=== PATIENT | male | born 1935 | race Hispanic/Latino ===

== ENCOUNTER 2017-10-24 13:29 | Inpatient (IN) | payer OTHER, MEDICARE ==
[~2017-10-24] VITALS: Ht 160 cm; Wt 56.8 kg
[2017-10-24 13:59] LABS: BASOPHILS % (AUTO) 0.1 % (0.0-5.0); HEMATOCRIT 35.6 % (42-54); LYMPHOCYTES % (AUTO) 2.8 % (21.0-51.0); MEAN CORPUSCULAR HEMOGLOBIN 25.3 pg (27.0-33.0); MEAN CORPUSCULAR HGB CONC 32.7 g/dL (32.0-36.0); MEAN CORPUSCULAR VOLUME 77.4 fL (79-99); MONOCYTES % (AUTO) 6.3 % (3.0-13.0); NEUTROPHILS % (AUTO) 90.8 % (40.0-77.0); PLATELET COUNT (AUTO) 299 K/uL (130-400); RED CELL DISTRIBUTION WIDTH 17.9 % (11.0-15.5); WHITE BLOOD COUNT (AUTO) 16.8 K/uL (4.8-10.8)
[2017-10-24] MEDS ORDERED: SODIUM CHLORIDE 0.9% 1000ML 1,000 ML IV ONE ×2 (14:05→16:17)
[2017-10-24] MEDS ORDERED: CEFTRIAXONE SODIUM 1 GM ONE (14:05)
[2017-10-24 14:07] LABS: APPEARANCE,URINE Cloudy (CLEAR); BILIRUBIN,URINE Negative (NEGATIVE); COLOR,URINE Yellow (YELLOW); GLUCOSE, URINE (UA) Negative (NEGATIVE); KETONES,URINE Negative (NEGATIVE); LEUKOCYTE ESTERASE ,URINE Large (NEGATIVE); NITRATE,URINE Negative (NEGATIVE); OCCULT BLOOD,URINE Moderate (NEGATIVE); PROTEIN,URINE Trace (NEGATIVE)
[2017-10-24 14:14] LABS: INR 1.06 (0.85-1.15); PARTIAL THROMBOPLASTIN TIME 31.5 SEC (26.3-35.5); PROTHROMBIN TIME 11.1 SEC (9.6-11.6)
[2017-10-24 14:17] LABS: BACTERIA,URINE Few /HPF (None Seen); WBC,URINE 26-50 /HPF (0-1)
[2017-10-24 14:18] LABS: SQUAMOUS EPITHELIAL CELL,UR 0-2 /HPF (0-2)
[2017-10-24 14:25] LABS: CARBON DIOXIDE 26 mmol/L (21-32); CHLORIDE 100 mmol/L (101-111); CREATININE 1.9 mg/dL (0.5-1.5); GLOMERULAR FILTR. RATE CALC 36 mL/min (>60); GLUCOSE,RANDOM 104 mg/dL (70-105); POTASSIUM 3.9 mmol/L (3.5-5.1); SODIUM SERUM 136 mmol/L (136-145); UREA NITROGEN, BLOOD 18 mg/dL (7-18)
[2017-10-24 14:42] LABS: ALANINE AMINOTRANSFERASE 23 U/L (12-78); ALBUMIN 3.8 g/dL (3.5-5.0); ASPARTATE AMINOTRANSFERASE 24 U/L (10-37); BILIRUBIN,TOTAL 0.9 mg/dL (0.2-1.0); CREATINE KINASE MB < 0.5 ng/mL (0.5-3.6); CREATINE KINASE, TOTAL 54 U/L (21-232); MYOGLOBIN 87 ng/mL (10-92); TOTAL PROTEIN, SERUM 7.8 g/dL (6.0-8.3); TROPONIN I < 0.04 ng/mL (0.00-0.06)
[2017-10-24] MEDS ORDERED: ONDANSETRON HCL 4 MG/2 ML VIAL ONE (16:22)
[2017-10-24] MEDS ORDERED: ACETAMINOPHEN 325 MG TAB ONE (16:28)
[2017-10-24 17:24] VITALS: BP 122/55
[2017-10-24] MEDS ORDERED: ALBUTEROL SULFATE 0.083% 2.5 MG/3 ML INH IH PRN (17:30)
[2017-10-24] MEDS ORDERED: ACETAMINOPHEN 325 MG TAB PO PRN ×2 (17:30)
[2017-10-24] MEDS ORDERED: ONDANSETRON HCL 4 MG/2 ML VIAL IV PRN (17:30)
[2017-10-24] MEDS ORDERED: CLOP75TA32 PO (17:32)
[2017-10-24] MEDS ORDERED: PANT40TA25 PO (17:32)
[2017-10-24] MEDS ORDERED: CEFTRIAXONE SODIUM 1 GM IVP ONE (18:00)
[2017-10-24] MEDS: NICOTINE 14 MG/ 24 HR PATCH TD SCH (18:17)
[2017-10-24] MEDS: SODIUM CHLORIDE 0.9% 1000ML 1,000 ML IV SCH (18:18)
[2017-10-24 19:54] VITALS: BP 101/43
[2017-10-24] MEDS: TAMSULOSIN HCL 0.4 MG CAP.ER.24H PO SCH (21:23)
[2017-10-25] VITALS (7 sets, daily range): BP systolic 99–135; BP diastolic 53–70
[2017-10-25] MEDS: SODIUM CHLORIDE 0.9% 1000ML 1,000 ML IV SCH ×3 (03:53→22:56)
[2017-10-25 04:02] LABS: BASOPHILS % (AUTO) 0.4 % (0.0-5.0); EOSINOPHILS % (AUTO) 0.2 % (0.0-8.0); HEMATOCRIT 26.6 % (42-54); LYMPHOCYTES % (AUTO) 5.5 % (21.0-51.0); MEAN CORPUSCULAR HEMOGLOBIN 25.3 pg (27.0-33.0); MEAN CORPUSCULAR HGB CONC 33.1 g/dL (32.0-36.0); MEAN CORPUSCULAR VOLUME 76.6 fL (79-99); MONOCYTES % (AUTO) 6.6 % (3.0-13.0); NEUTROPHILS % (AUTO) 87.3 % (40.0-77.0); PLATELET COUNT (AUTO) 199 K/uL (130-400); RED BLOOD CELL COUNT(AUTO) 3.48 MIL/uL (4.50-6.20); WHITE BLOOD COUNT (AUTO) 12.1 K/uL (4.8-10.8)
[2017-10-25 04:07] LABS: HEMOGLOBIN A1C 5.8 % (4.0-6.0)
[2017-10-25 04:13] LABS: ALBUMIN 2.5 g/dL (3.5-5.0); BILIRUBIN,DIRECT 0.3 mg/dL (0.0-0.3); BILIRUBIN,TOTAL 0.6 mg/dL (0.2-1.0); CREATININE 1.6 mg/dL (0.5-1.5); MAGNESIUM 1.6 mg/dL (1.80-2.40); POTASSIUM 3.9 mmol/L (3.5-5.1); TOTAL PROTEIN, SERUM 5.5 g/dL (6.0-8.3)
[2017-10-25] MEDS: NICOTINE 14 MG/ 24 HR PATCH TD SCH (09:20)
[2017-10-25] MEDS: TAMSULOSIN HCL 0.4 MG CAP.ER.24H PO SCH (09:20)
[2017-10-25] MEDS: ENOXAPARIN SODIUM 30 MG/0.3 ML SQ SCH (09:20)
[2017-10-25] MEDS: CEFTRIAXONE SODIUM 2 GM VIAL IVP SCH (09:20)
[2017-10-25] MEDS: FAMOTIDINE/PF 20 MG/2 ML VIAL IV SCH (09:20)
[2017-10-25] MEDS ORDERED: CEFTRIAXONE SODIUM 2 GM VIAL IVP SCH (17:30)
[2017-10-26 04:01] VITALS: BP 160/72
[2017-10-26 04:05] LABS: BASOPHILS % (AUTO) 0.4 % (0.0-5.0); EOSINOPHILS % (AUTO) 2.4 % (0.0-8.0); HEMATOCRIT 26.1 % (42-54); LYMPHOCYTES % (AUTO) 8.9 % (21.0-51.0); MEAN CORPUSCULAR HEMOGLOBIN 25.7 pg (27.0-33.0); MEAN CORPUSCULAR HGB CONC 33.5 g/dL (32.0-36.0); MEAN CORPUSCULAR VOLUME 76.7 fL (79-99); MONOCYTES % (AUTO) 6.8 % (3.0-13.0); NEUTROPHILS % (AUTO) 81.5 % (40.0-77.0); NUCLEATED RED BLOOD CELLS 0.1 % (0.0-0.19); PLATELET COUNT (AUTO) 235 K/uL (130-400); RED CELL DISTRIBUTION WIDTH 18.3 % (11.0-15.5); WHITE BLOOD COUNT (AUTO) 9.1 K/uL (4.8-10.8)
[2017-10-26 04:09] LABS: CREATININE 1.5 mg/dL (0.5-1.5); MAGNESIUM 1.8 mg/dL (1.80-2.40); POTASSIUM 3.7 mmol/L (3.5-5.1)
[2017-10-26 04:10] LABS: % IRON SATURATION 2.8 % (30-44)
[2017-10-26 07:43] VITALS: BP 145/71
[2017-10-26] MEDS: CEFTRIAXONE SODIUM 2 GM VIAL IVP SCH (08:27)
[2017-10-26] MEDS: FAMOTIDINE/PF 20 MG/2 ML VIAL IV SCH (08:27)
[2017-10-26] MEDS: TAMSULOSIN HCL 0.4 MG CAP.ER.24H PO SCH (08:27)
[2017-10-26] MEDS: ENOXAPARIN SODIUM 30 MG/0.3 ML SQ SCH (08:28)
[2017-10-26] MEDS: NICOTINE 14 MG/ 24 HR PATCH TD SCH (08:28)
[2017-10-26 11:28] VITALS: BP 140/59
[2017-10-26 12:20] LABS: ALBUMIN 2.7 g/dL (3.5-5.0); BILIRUBIN,TOTAL 0.2 mg/dL (0.2-1.0); CREATININE 1.5 mg/dL (0.5-1.5); POTASSIUM 3.5 mmol/L (3.5-5.1); TOTAL PROTEIN, SERUM 6.4 g/dL (6.0-8.3)
[2017-10-26] MEDS: SODIUM CHLORIDE 0.9% 1000ML 1,000 ML IV SCH (12:27)
[2017-10-26 16:24] VITALS: BP 149/74
[2017-10-26 19:39] VITALS: BP_SYST 111; BP_SYST 151; BP_DIAS 62; BP_DIAS 80
[2017-10-26 23:56] VITALS: BP 142/69
[2017-10-27 04:01] VITALS: BP 172/87
[2017-10-27 06:10] VITALS: BP 127/79
[2017-10-27 08:08] VITALS: BP 109/53
[2017-10-27] MEDS ORDERED: CEPH500B PO (08:19)
[2017-10-27] MEDS: CEFTRIAXONE SODIUM 2 GM VIAL IVP SCH (09:04)
[2017-10-27] MEDS: FAMOTIDINE/PF 20 MG/2 ML VIAL IV SCH (09:04)
[2017-10-27] MEDS: TAMSULOSIN HCL 0.4 MG CAP.ER.24H PO SCH (09:04)
[2017-10-27] MEDS: NICOTINE 14 MG/ 24 HR PATCH TD SCH (09:05)
[2017-10-27] MEDS: ENOXAPARIN SODIUM 30 MG/0.3 ML SQ SCH (09:21)
[2017-10-27 11:24] VITALS: BP 137/73
== END 2017-10-27 11:35 | disposition home or self-care (01) | DRG 872 ==
LOC: EDH 13:29 → EDHIP 16:23 → 2AH 17:02
PROVIDERS: ADMIT Internal Medicine; ATTEND Internal Medicine
DX: A41.9 Sepsis, unspecified organism (principal); N39.0 Urinary tract infection, site not specified; N17.9 Acute kidney failure, unspecified; N12 Tubulo-interstitial nephritis, not specified as acute or chronic; B96.20 Unspecified Escherichia coli [E. coli] as the cause of diseases classified elsewhere; D63.8 Anemia in other chronic diseases classified elsewhere; N18.3 Chronic kidney disease, stage 3 (moderate); N40.0 Benign prostatic hyperplasia without lower urinary tract symptoms; D64.9 Anemia, unspecified; R32 Unspecified urinary incontinence; K27.9 Peptic ulcer, site unspecified, unspecified as acute or chronic, without hemorrhage or perforation; Z72.0 Tobacco use; Z79.02 Long term (current) use of antithrombotics/antiplatelets; Z86.73 Personal history of transient ischemic attack (TIA), and cerebral infarction without residual deficits
CPT/HCPCS: 36415; 71045; 76770; 76856; 80048; 80053; 80061; 80076; 80339; 81001; 82550; 82553; 83036; 83540; 83550; 83605; 83735; 83874; 84484; 85025; 85610; 85730; 87040; 87088; 87186; 93005; 94664; A4218; J0696; J1650; J2405; J3490; J7030